=== PATIENT | male | born 1985 | race Caucasian/White ===

== ENCOUNTER 2022-09-02 15:31 | Emergency (ER) | payer OTHER | END 2022-09-02 17:35 | disposition home or self-care (01) | LOC: JD.ED 15:31 | DX: S42.032A Displaced fracture of lateral end of left clavicle, initial encounter for closed fracture (principal); V29.99XA Rider (driver) (passenger) of other motorcycle injured in unspecified traffic accident, initial encounter | CPT/HCPCS: 73030-26-LT; 73030-LT; 99283 ==